=== PATIENT | female | born 1955 | race Asian ===

== ENCOUNTER → 2018-01-14 | Outpatient (CLI) | payer OTHER ==
--- NOTE | 2018-01-17 07:33 | MAMMOGRAPHY REPORT ---
BILATERAL DIGITAL SCREENING MAMMOGRAM TOMOSYNTHESIS WITH CAD: 01/14/2018 CLINICAL HISTORY: Routine screening. Patient has no complaints. TECHNIQUE: Breast tomosynthesis in addition to standard 2D mammography was performed. Current study was also evaluated with a Computer Aided Detection (CAD) system. COMPARISON: Comparison is made to exams dated: 06/26/2016 mammogram, 06/30/2012 mammogram, 06/29/2011 ma mmogram, 04/25/2010 mammogram - [facility], 01/11/2008, and 06/09/2006 mammogram. BREAST COMPOSITION: There are scattered areas of fibroglandular density in both breasts. FINDINGS: No suspicious masses, calcifications, or areas of architectural distortion are noted in ei ther breast. There has been no significant interval change compared to prior exams. IMPRESSION: ACR BI-RADS CATEGORY 1: NEGATIVE There is no mammographic evidence of malignancy. A 1 year screening mammogram is recommended. The pa tient will receive written notification of the results. Approximately 10% of breast cancers are not detected with mammography. A negative mammographic report should not delay biopsy if a clinically suggestive mass is present. Alvina Martin M.D. /:01/14/2018 16:00:03 Analysis Mgr: Watson Douglas M, [facility] letter sent: Normal 1/2 BI-RADS Code: ACR BI-RADS Category 1: Negative
== END | disposition home or self-care (01) ==
LOC: C.MAMM 11:11
PROVIDERS: ATTEND Family Medicine
DX: Z12.31 Encounter for screening mammogram for malignant neoplasm of breast (principal)

== ENCOUNTER → 2018-01-21 | Outpatient (CLI) | payer OTHER ==
--- NOTE | 2018-01-21 16:07 | DIAGNOSTIC IMAGING REPORT ---
LUMBAR SPINE MIN 4 VIEWS CLINICAL HISTORY: LOWER BACK PAIN COMPARISON STUDY: No previous studies for comparison. FINDINGS: There is no pathologic bowel dilatation. No acute fractures are visualized. There is marked disc space narrowing at the L5-S1 level. IMPRESSION: 1. No acute fractures or subluxations 2. Marked disc space narrowing at the L5-S1 level with small posterior osteophytes. Electronically signed by: Matt Garcia M.D. 01/21/2018 4:05 PM Dictated Date/Time: 01/21/2018 4:04 PM
== END | disposition home or self-care (01) ==
LOC: C.RDSM 17:56
PROVIDERS: ATTEND Family Medicine
DX: M54.5 Low back pain (principal); M51.37 Other intervertebral disc degeneration, lumbosacral region; M25.78 Osteophyte, vertebrae

== ENCOUNTER → 2018-01-21 | Outpatient (CLI) | payer OTHER ==
--- NOTE | 2018-01-21 17:51 | DIAGNOSTIC IMAGING REPORT ---
LUMBAR SPINE W/O CONTRAST CLINICAL HISTORY: 62 years-old Female presenting with low back pain since 01/16/2018, no known injury, no history of surgery or cancer, pain radiates to the right leg. TECHNIQUE: Multisequence, multiplanar MR imaging of the lumbar spine was performed without the use of intravenous contrast. IV contrast: None. COMPARISON: Radiographs of the lumbar spine from 01/21/2018. FINDINGS: Localizer images: Tarlov cysts noted. Straightening of normal lumbar lordosis. Degenerative related fatty endplate changes at L5-S1. Minimal bone marrow edema and fatty endplate changes evident anteriorly at L4-5. Additionally there is a heterogeneously T1 hypointense, T2 hyperintense lesion in the L2 vertebral body, indeterminate but possibly a fat poor hemangioma. Vertebral bodies otherwise maintain normal height, alignment, and bone marrow signal intensity. Intervertebral disc desiccation noted at L3-4 and to a greater extent at L4-5. Significant desiccation and height loss evident at L5-S1. Additional multilevel degenerative changes further detailed below: L1-2: No significant neural foraminal or spinal canal stenosis. L2-3: No neural foraminal or spinal canal stenosis despite the presence of mild facet arthropathy. L3-4: Disc bulge with annular fissure and focal disc protrusion at the right lateral recess. This results in mass effect on the transiting right L4 nerve root. Facet arthropathy and disc bulge at this level result in moderate right and mild left neural foraminal narrowing. Degenerative changes do not appear to abut the exiting L3 nerve roots. L4-5: Facet arthropathy and minimal disc bulge results in mild bilateral neural foraminal narrowing. No significant spinal canal narrowing. L5-S1: Minimal disc bulge results in mild bilateral neural foraminal narrowing. No significant spinal canal narrowing. Spinal cord ends in good position at the L1-2 level. Cauda equina normal in morphology. No paraspinal muscular edema. IMPRESSION: 1. Multilevel degenerative changes most significant at L3-4, where there is a focal disc protrusion effacing the right lateral recess and resulting in mass effect on the transiting right L4 nerve root. This likely accounts for the patient's symptomatology. Additional degenerative changes as above. Electronically signed by: Dago De Dios M.D. 01/21/2018 5:49 PM Dictated Date/Time: 01/21/2018 5:43 PM
== END | disposition home or self-care (01) ==
LOC: C.MRI 16:36
PROVIDERS: ATTEND Family Medicine
DX: M54.16 Radiculopathy, lumbar region (principal); M51.36 Other intervertebral disc degeneration, lumbar region; M51.26 Other intervertebral disc displacement, lumbar region